=== PATIENT | male | born 1990 | race Caucasian/White ===

== ENCOUNTER → 2025-02-07 13:14 | Outpatient (CLI) | payer OTHER, SELFPAY ==
--- NOTE | 2025-02-07 13:21 | DI.RAD.S_ITS ---
PROCEDURE: XR CERVICAL SPINE 2V OR 3V INDICATIONS: NECK/BACK PAIN TECHNIQUE: Three views of the cervical spine were acquired. COMPARISON: None. FINDINGS: Cervical spine curvature and alignment: Normal. Bones: There are no osseous abnormalities. Disc spaces: Mild C3-4 and C5-6 degenerative disc disease noted. Intervertebral foramen: Grossly normal in width. Soft tissues: No soft tissue swelling, calcification or mass. IMPRESSION: Mild degeneration Dictated by: Elpidio Benton M.D. on 02/08/2025 at 10:58 Approved by: Elpidio Benton M.D. on 02/08/2025 at 10:58
--- NOTE | 2025-02-07 13:21 | DI.RAD.S_ITS ---
PROCEDURE: XR LUMBAR SPINE 2-3V INDICATIONS: NECK/BACK PAIN TECHNIQUE: 3 views of the lumbar spine were acquired. COMPARISON: None. FINDINGS: Lumbar spine curvature and alignment: Normal. Bones: There are no osseous abnormalities. Disc spaces: Minimal L5-S1 degenerative disc and facet disease noted. Soft tissues: No soft tissue swelling, calcification or mass. IMPRESSION: Minimal L5-S1 degenerative disc and facet disease Dictated by: Elpidio Benton M.D. on 02/08/2025 at 10:57 Approved by: Elpidio Benton M.D. on 02/08/2025 at 10:58
--- NOTE | 2025-02-07 13:21 | DI.RAD.S_ITS ---
PROCEDURE: XR CHEST 2V INDICATIONS: pure hypercholesterolemia, tobacco use TECHNIQUE: 2 views of the chest were acquired. COMPARISON: None. FINDINGS: Heart, mediastinum and pulmonary vascular: Heart is normal in size and configuration. Mediastinum is unremarkable. Pulmonary vascular is normal. Lungs: Mild pectus excavatum has compressed the bronchial vasculature in the right medial base. No definite infiltrate Pleural spaces: Normal-no effusions or pneumothorax. Bones and soft tissues: Normal IMPRESSION: Normal chest. Dictated by: Elpidio Benton M.D. on 02/08/2025 at 10:55 Approved by: Elpidio Benton M.D. on 02/08/2025 at 10:57
== END ==
LOC: RAD 13:19
PROVIDERS: PCP Family Medicine; Referring Provider Family Medicine; Visit Provider Family Medicine
DX: Z00.00 Encounter for general adult medical examination without abnormal findings (principal); M50.31 Other cervical disc degeneration, high cervical region; Z86.73 Personal history of transient ischemic attack (TIA), and cerebral infarction without residual deficits; M51.370 Other intervertebral disc degeneration, lumbosacral region with discogenic back pain only; M47.817 Spondylosis without myelopathy or radiculopathy, lumbosacral region; E78.00 Pure hypercholesterolemia, unspecified; R41.840 Attention and concentration deficit; G89.29 Other chronic pain; M25.551 Pain in right hip; Z72.0 Tobacco use
CPT/HCPCS: 71046; 72040; 72100

== ENCOUNTER → 2025-02-17 06:59 | Outpatient (CLI) | payer OTHER, SELFPAY ==
--- NOTE | 2025-02-17 07:01 | DI.CT.S_ITS ---
PROCEDURE: CT LUNG LOW DOSE SCREENING INDICATIONS: nicotine dependence TECHNIQUE: Noncontrast 2.0-2.5 mm thick sections acquired from the pulmonary apices to the posterior costophrenic angles. 7 mm thick axial MIP, and 5 mm coronal and sagittal reformats were then acquired. For radiation dose reduction, the following was used: automated exposure control, adjustment of mA and/or kV according to patient size. COMPARISON: [facility], CR, XR CHEST 2V, 02/07/2025, 13:30. FINDINGS: Image quality: Diagnostic. Lower Neck: No enlarged lymph nodes. Thyroid: No thyroid nodules which require sonographic follow up, per consensus guidelines. Axillae: No enlarged lymph nodes. Chest Wall: Unremarkable. Bones: Unremarkable. Lungs and Pleura: No pneumothorax or pleural effusions. 6 mm maximal dimension small nodular radiodensity at the anterior left lung apex, series 3, image 38. 2 mm right upper lobe mid chest nodule, 3/164. 3 x 9 mm right upper lobe nodule, 3/168. 2 mm posterior left upper lobe pleural base nodule 3/136. Mild bilateral emphysematous change, centrilobular, best seen over the upper lungs. Heart: Heart size is normal. No pericardial effusion. Thoracic Vessels: The aorta and pulmonary arteries demonstrate normal size. Mediastinum and Edda: No enlarged lymph nodes. Esophagus: No wall thickening. No hiatal hernia. Upper Abdomen: Visualized upper abdomen solid organs and bowel loops appear normal. IMPRESSION: Scattered small probably benign pulmonary nodules as discussed above, bilaterally. LUNG-RADS 3; follow-up noncontrast CT scanning in 6 months is recommended. Clinically Significant Non-pulmonary Findings: Mild centrilobular emphysematous change, best seen over the upper lungs bilaterally. Dictated by: Alfred Muniz M.D. on 02/17/2025 at 14:03 Approved by: Alfred Muniz M.D. on 02/17/2025 at 14:10
== END ==
LOC: CT 07:00
PROVIDERS: PCP Family Medicine; Referring Provider Family Medicine; Visit Provider Family Medicine
DX: R91.8 Other nonspecific abnormal finding of lung field (principal); F17.210 Nicotine dependence, cigarettes, uncomplicated
CPT/HCPCS: 71271

== ENCOUNTER 2025-06-03 16:28 | Emergency (ER) | payer OTHER, SELFPAY ==
[2025-06-03 16:41] VITALS: BP 127/68; PULSE 70; RESP 20; TEMP 36.6; O2SAT 98; BMI 21.7
--- NOTE | 2025-06-03 16:47 | DI.RAD.S_ITS ---
PROCEDURE: XR FINGER LT MIN 2V INDICATIONS: cut with axe TECHNIQUE: AP hand, 2 views of the 2nd finger(s) acquired. COMPARISON: None. FINDINGS AND IMPRESSION: No acute displaced fracture or dislocation. No radiopaque internal foreign body is seen. If there is high concern for occult injury, consider repeat radiography in about 7 days or cross-sectional imaging. Dictated by: Festus Broderick M.D. on 06/03/2025 at 16:36 Approved by: Festus Broderick M.D. on 06/03/2025 at 16:37
--- NOTE | 2025-06-03 20:47 | ED_ITS ---
HPI - Extremity Injury (Upper) General Chief Complaint: Extremity Injury, Upper Stated Complaint: wound, lt hand index finger Time Seen by Provider: 06/03/25 16:39 Source: patient Mode of arrival: Ambulatory History of Present Illness HPI narrative: 35-year-old male complains of hatchet injury to the left index finger for 5 hours ago, can move finger well. No other injuries. Laceration to the medial aspect of the left index finger. Last tetanus recent, believes he is up-to-date. He requests antibiotics, concerned about infection developing. No fevers or chills or swelling. Related Data Previous Rx's ?Medication ?Instructions ?Recorded cephalexin 500 mg capsule 500 mg PO QID 7 days #28 cap s 06/03/25 Allergies Allergy/AdvReac Type Severity Reaction Status Date / Time No Known Drug Allergies Allergy Verified 06/03/25 16:44 Patient History Social History Smoking Status: Current every day smoker Smoking Status: Current every day smoker Exam Narrative Exam Narrative: GENERAL: Well-developed patient, in mild distress. HEAD: Atraumatic. Normocephalic. EYES: Pupils equal round and reactive. Extraocular motions intact. No scleral icterus. No injection or drainage. ENT: Nose without bleeding, purulent drainage. Throat without erythema, tonsillar hypertrophy or exudate. Airway patent. NECK: Trachea midline. Non tender CARDIOVASCULAR: Regular rate and rhythm without murmurs, gallops, or rubs. RESPIRATORY: Clear to auscultation. Breath sounds equal bilaterally. No wheezes, rales, or rhonchi. GASTROINTESTINAL: Abdomen soft, non-tender, nondistended. EXTREMITIES: Left index finger flap like laceration seems well applied and adherent at this time 1.5cm, no active bleeding, no significant redness to the finger, on medial aspect, not over tendon structures. BACK: Nontender without deformity or crepitance. No flank tenderness. NEURO: AOx3. Motor functions grossly nonfocal. SKIN: No rash or erythema of visible areas Initial Vital Signs Initial Vital Signs: Vital Signs Temperature 97.8 F 06/03/25 16:41 Pulse Rate 70 06/03/25 16:41 Respiratory Rate 20 06/03/25 16:41 Blood Pressure 127/68 06/03/25 16:41 Pulse Oximetry 98 06/03/25 16:41 Oxygen Delivery Method Room Air 06/03/25 16:41 Course Orders Ordered: Discontinued Medications Bacitracin (Bacitracin Oint 0.9 Gm Pckt) 1 applic TOP NOW ONE Stop: 06/03/25 21:16 Last Admin: 06/03/25 21:23 Dose: 1 applic Documented By: ANIL Cephalexin HCl (Cephalexin 250 Mg Capsule) 500 mg PO NOW ONE Stop: 06/03/25 21:15 Last Admin: 06/03/25 21:23 Dose: 500 mg Documented By: ANIL Hydromorphone HCl (Hydromorphone 1 Mg Inj) 1 mg IV NOW ONE Stop: 06/03/25 21:00 Last Admin: 06/03/25 21:01 Dose: Not Given Documented By: JOCY Ondansetron HCl (Ondansetron 4 Mg/2 Ml Inj) 4 mg IV NOW ONE Stop: 06/03/25 21:00 Last Admin: 06/03/25 21:01 Dose: Not Given Documented By: JOCY Vital Signs Vital signs: Vital Signs - 8 hr 06/03/25 16:41 Temperature 97.8 F Pulse Rate 70 Respiratory Rate 20 Blood Pressure 127/68 Pulse Oximetry 98 Oxygen Delivery Method Room Air MDM - Extremity Injury (Upper) Imaging Data Extremity x-ray #1: Radiologist's Impression: [place] [address] XRay Report Signed Patient: Nic Nagel MR#: [id number] : 1990 Acct:[id number] Age/Sex: 35 / M Date of Service: 06/03/25 Loc: ED Accession Number: [id number] Procedure: XR finger LT min 2V Ordering Provider: Elpidio Ardon D.O. PROCEDURE: XR FINGER LT MIN 2V INDICATIONS: cut with axe TECHNIQUE: AP hand, 2 views of the 2nd finger(s) acquired. COMPARISON: None. FINDINGS AND IMPRESSION: No acute displaced fracture or dislocation. No radiopaque internal foreign body is seen. If there is high concern for occult injury, consider repeat radiography in about 7 days or cross-sectional imaging. Dictated by: Festus Broderick M.D. on 06/03/2025 at 16:36 Approved by: Festus Broderick M.D. on 06/03/2025 at 16:[address] [facility] Narrative Medical decision making narrative: 35-year-old male with hatchet injury to the left index finger, small medial superficial skin flap like laceration, seems well applied and quite adherent. X-ray negative for fracture, see radiology report. Consider digital block and peeling back of the wound to irrigate and then primary closed with sutures. He would rather have Steri-Strips closure. Steri-Strips placed by nursing. But he would like to be treated with antibiotics. NKDA. Cephalexin dose given, prescription sent to his pharmacy. Wound check advised early next week. T etanus up-to-date. Discharged home with family. Discharge Plan Departure Patient Disposition: Home Clinical Impression: Laceration of left index finger Activity Restrictions/Additional Instructions: Laceration to the left index finger from hatchet injury. X-ray showed no bony injury. Superficial flap like laceration already well adhered. We could try numbing the finger and peeling it back to irrigate. You preferred to have Steri-Strips closure of the wound for now. But you were interested in trying oral antibiotics to help prevent infection. Oral dose of cephalexin dispensed, prescription for further cephalexin oral antibiotics sent to your pharmacy. Consider wound check with your regular doctor early this next week. Tetanus up-to-date. Take Tylenol and or Motrin as needed for pain control. Try to keep the wound area clean. Steri-Strips should fall off by themselves next week or so. Prescriptions: New cephalexin 500 mg capsule 500 mg PO QID 7 Days Qty: 28 0RF Referrals: Aster Marques MD [Primary Care Provider, [facility]] Stand Alone Forms: Patient Portal/API
[2025-06-03] MEDS: BACITRACIN OINT 0.9 GM PCKT 1 APPLIC TOP (21:23)
[2025-06-03 21:29] VITALS: BP 117/61; PULSE 66; RESP 18; O2SAT 99
== END 2025-06-03 21:34 | disposition home or self-care (01) ==
PROVIDERS: Emergency Provider Emergency Medicine; PCP Family Medicine
DX: S61.211A Laceration without foreign body of left index finger without damage to nail, initial encounter (principal); W27.0XXA Contact with workbench tool, initial encounter
CPT/HCPCS: 73140; 99283

== ENCOUNTER → 2025-09-01 15:26 | Outpatient (CLI) | payer OTHER, SELFPAY ==
--- NOTE | 2025-09-01 15:27 | DI.CT.S_ITS ---
PROCEDURE: CT CHEST WO CON INDICATIONS: PULMONARY NODULE TECHNIQUE: Noncontrast 5 mm thick sections acquired from the pulmonary apices to the posterior costophrenic angles. 1 mm lung window, 5 mm thick coronal and sagittal and 7 mm axial MIP reformats were then acquired. For radiation dose reduction, the following was used: automated exposure control, adjustment of mA and/or kV according to patient size. COMPARISON: Merged With [facility], CT, CT LUNG LOW DOSE SCREENING, 02/17/2025, 7:22. FINDINGS: Image quality: Diagnostic. Lower Neck: No enlarged lymph nodes. Thyroid: No thyroid nodules which require sonographic follow up, per consensus guidelines. Axillae: No enlarged lymph nodes. Chest Wall: Unremarkable. Bones: Unremarkable. Lungs and Pleura: No pneumothorax or pleural effusions. Stable pulmonary nodules bilaterally, including 7 mm pleural based nodule along the major fissure (3/167), in the right upper lobe, left apical anterior pleural-based nodule measuring 6 mm (3/37), and additional scattered sub-6 mm pulmonary nodules. Heart: Heart size is normal. No pericardial effusion. Thoracic Vessels: The aorta and pulmonary arteries demonstrate normal size. Mediastinum and Edda: No enlarged lymph nodes. Esophagus: No wall thickening. No hiatal hernia. Upper Abdomen: Visualized upper abdomen solid organs and bowel loops appear normal. IMPRESSION: Stable bilateral pulmonary nodules measuring up to 7 mm in the right upper lobe along the major fissure. Recommend return to yearly lung cancer screening in 6 months if patient is eligible. Dictated by: Venice Alexander M.D. on 09/03/2025 at 12:49 Approved by: Venice Alexander M.D. on 09/03/2025 at 13:03
== END ==
LOC: CT 15:27
PROVIDERS: PCP Family Medicine; Referring Provider Family Medicine; Visit Provider Family Medicine
DX: R91.8 Other nonspecific abnormal finding of lung field (principal)
CPT/HCPCS: 71250